=== PATIENT | male | born 1950 | race Caucasian/White ===

== ENCOUNTER 2017-01-12 05:23 | Day surgery (SDC) | payer BC ==
[2017-01-12] MEDS ORDERED: Sodium Chloride 0.9% 10 ML Syringe FLUSH PRN (06:00)
[2017-01-12] MEDS ORDERED: Dextrose 5%-0.45% NaCl 1,000 ML IV SCH (06:00)
[2017-01-12] MEDS ORDERED: Midazolam 1 MG/ML 2 ML SDV ONE (06:16)
[2017-01-12] MEDS ORDERED: fentaNYL 100 MCG/2 ML SDV ONE (06:16)
[2017-01-12] MEDS ORDERED: fentaNYL 100 MCG/2 ML SDV IV ONE ×3 (06:38→09:00)
[2017-01-12] MEDS ORDERED: Midazolam 1 MG/ML 2 ML SDV IV ONE ×7 (06:39→09:00)
--- NOTE | 2017-01-12 07:39 | OR ---
DATE: 01/12/2017 PROCEDURES: Total colonoscopy and numerous pinch biopsies. INSTRUMENT USED: CF-H180AL Olympus video colonoscope. PREMEDICATIONS: Fentanyl 100 mcg intravenous, Versed 4 mg intravenous. Nasal O2 cannula. The procedure was done under pulse oximetry, BP recording, and interventional radiology tech. INDICATION: The patient with longstanding ulcerative colitis. Surveillance colonoscopic examination is done for detection of any polypoid lesions and removal, biopsies to be taken for any evidence of dysplasia, endoscopic hemostasis therapy if needed. DESCRIPTION OF PROCEDURE: Initial rectal exam was unremarkable. Rigid anoscopy was normal. The colonoscope was passed with ease up to the ileocecal area, photographs were taken of the normal-appearing cecum, identified by landmarks of appendiceal orifice and double-bulged ileocecal folds. No bleeding was noted from any of the visualized areas at the commencement of the examination. No stricture. No vascular ectasia. No large isolated ulcerations seen. No evidence of diffuse inflammatory bowel disease in the form of friability, contact bleeding, or ulcerations. No polyp or tumor mass identified. Probing the proximal sides of folds and flexures, using adequate distention and clearing of the stool material, withdrawal of the scope was made. Four-quadrant biopsies were taken at 10 cm distance apart from the normal-appearing mucosa, cecum to rectum and the tissues obtained were pooled into bags; #1 cecum and ascending colon, #2 transverse colon, #3 descending colon, and #4 rectosigmoid. No bleeding was noted from any of the visualized areas at the completion of examination. IMPRESSION: Normal study. The patient tolerated the procedure well. [facility] /[id number]
[2017-01-12 09:59] VITALS: BP 108/71
== END 2017-01-12 09:07 | disposition home or self-care (01) ==
LOC: DL.ENDO 05:23
PROVIDERS: ATTEND Internal Medicine Gastroenterology
DX: K63.89 Other specified diseases of intestine (principal); E78.00 Pure hypercholesterolemia, unspecified; K21.9 Gastro-esophageal reflux disease without esophagitis; Z87.891 Personal history of nicotine dependence; Z98.890 Other specified postprocedural states
CPT/HCPCS: 45380; J2250; J3010; J7042